=== PATIENT | female | born 1985 | race Caucasian/White ===

== ENCOUNTER 2023-11-06 22:17 | Emergency (ER) | payer BC ==
[2023-11-07] MEDS: Doxycycline Monohydrate 100 MG Cap PO ONE (00:16)
== END 2023-11-07 00:08 | disposition home or self-care (01) ==
LOC: JD.ED 22:17
DX: S91.151A Open bite of right great toe without damage to nail, initial encounter (principal); F17.210 Nicotine dependence, cigarettes, uncomplicated; Z88.8 Allergy status to other drugs, medicaments and biological substances; Z91.048 Other nonmedicinal substance allergy status; Z79.899 Other long term (current) drug therapy; Z86.19 Personal history of other infectious and parasitic diseases; Z90.49 Acquired absence of other specified parts of digestive tract; W54.0XXA Bitten by dog, initial encounter
CPT/HCPCS: 99283; A9270